=== PATIENT | female | born 1980 | race African-American/Black ===

== ENCOUNTER 2018-12-14 07:21 | Emergency (ER) | payer MEDICARE, OTHER ==
[~2018-12-14] VITALS: Wt 61.4 kg
[2018-12-14 07:23] VITALS: Wt 61.4 kg
[2018-12-14] MEDS ORDERED: KETOROLAC 30 MG INJ IM STA (07:37)
[2018-12-14] MEDS ORDERED: ONDANSETRON (ODT) 4 MG TAB ODT STA (07:37)
[2018-12-14] MEDS ORDERED: LIDOCAINE/MYLANTA 40 ML BTL PO STA (07:42)
[2018-12-14] MEDS ORDERED: BELLADONNA/PHENOBARBITAL TAB PO STA (07:42)
[2018-12-14 08:34] VITALS: BP 153/81; PULSE 70; RESP 20
--- NOTE | 2018-12-14 09:50 | ERD ---
ER Documentation Chief Complaint Chief Complaint abd pain w n/v/d, slouched on wc, cold to touch, seen at 2 ERs, see note HPI 38-year-old woman complains of continued diffuse abdominal pain and nausea. She has a long history of chronic recurrent abdominal pain going back a few years she was just discharged from another nearby emergency department after normal ultrasound and CT scan of the abdomen and pelvis. 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 She is requesting IV opioid analgesics. She was given prescriptions to use at home for continued pain control and nausea, as well as constipation. She has had no blood per rectum or melena, no weight loss, no vomiting or diarrhea, no complaints of chest pain or shortness of breath ROS All systems reviewed and are negative except as per history of present illness. Allergies Allergies: Coded Allergies: Sulfa (Sulfonamide Antibiotics) (Verified Allergy, Intermediate, 12/14/18) PMhx/Soc Long history of chronic recurrent abdominal pain, opioid dependence, hyperten brandon History of Surgery: No Anesthesia Reaction: No Hx Neurological Disorder: No Hx Respiratory Disorders: No Hx Cardiac Disorders: No Hx Psychiatric Problems: No Hx Miscellaneous Medical Probl: Yes (Ulcer) Hx Alcohol Use: No Hx Substance Use: No Hx Tobacco Use: No Smoking Status: Never smoker FmHx Family History: No diabetes Physical Exam Vitals Vital Signs Date Temp Pulse Resp B/P (MAP) Pulse Ox O2 O2 Flow FiO2 Time Delivery Rate 12/14/18 97.0 70 20 153/81 99 Room Air 08:34 (105) 12/14/18 96.4 65 20 170/97 99 07:23 (121) Physical Exam Const: No acute distress, afebrile, agitated Resp: Clear to auscultation bilaterally Cardio: Regular rate and rhythm, no murmurs Abd: Soft, nontender, no guarding or rigidity, no masses or hernia palpated, no rebound tenderness, no Tesfaye sign, no McBurney's point tenderness Skin: No petechiae or rashes Back: No midline or flank tenderness Ext: No cyanosis, or edema, calves symmetrical Neur: Awake and alert x3, no focal deficits or facial asymmetry, gait normal Psych: Agitated Results 24 hrs Current Medications Medications Dose Sig/Jennifer Start Time Status Last (Trade) Ordered Route PRN Stop Time Admin Dose Reason Admin Ketorolac 30 mg ONCE STAT 12/14/18 DC 12/14/18 Tromethamine IM 07:37 07:52 (Toradol) 12/14/18 07:42 Ondansetron 4 mg ONCE STAT 12/14/18 DC 12/14/18 HCl (Zofran ODT 07:37 07:51 Odt) 12/14/18 07:42 40 ml ONCE STAT 12/14/18 DC 12/14/18 Miscellaneous PO 07:42 07:51 Medication 12/14/18 07:43 (Gi Cocktail (2)) Belladonna/ 2 tab ONCE STAT 12/14/18 DC 12/14/18 Phenobarbital PO 07:42 07:51 () 12/14/18 07:43 Procedures/MDM I administered Toradol 30 mg IM, GI cocktail p.o., Zofran p.o. for her symptoms I reviewed recent imaging study results, they were all normal and BANDAR report reveals multiple ER visits for similar symptoms including vomiting, diarrhea, abdominal pain. Patient's pain improved and vital signs are normal, she will be discharged to follow-up with PMD and GI Patient feels much better at this time, and vital signs are normal, symptoms have improved. I did give strict instructions to return to the ED if symptoms continue or worsen, patient will otherwise follow-up with primary care physician. Patient understood instructions and agreed to plan. Disclaimer: Inadvertent spelling and grammatical errors are likely due to EHR/dictation software use and do not reflect on the overall quality of patient care. Also, please note that the electronic time recorded on this note does not necessarily reflect the actual time of the patient encounter. Departure Diagnosis: Primary Impression: Abdominal pain Abdominal location: generalized Qualified Codes: R10.84 - Generalized abdominal pain Additional Impression: Chronic pain syndrome Condition: Good Patient Instructions: Abdominal Pain, Unknown Cause, (Female) Referrals: ANSON MURDOCK MD, DAVID MD Dec 14, 2018 09:49
== END 2018-12-14 08:51 | disposition home or self-care (01) ==
LOC: E/R 07:21
DX: R10.84 Generalized abdominal pain (principal); G89.4 Chronic pain syndrome
CPT/HCPCS: 96372; 99284; J1885